=== PATIENT | female | born 1975 | race Caucasian/White ===

== ENCOUNTER 2023-05-30 00:30 | Day surgery (SDC) | payer OTHER, SELFPAY ==
[2023-05-19 15:26] VITALS: BMI 37.1
--- NOTE | 2023-05-19 15:31 | PC.NURSE ---
Report to the Outpatient Waiting Room, entrance under the green pavilion located off [facility], at time 1100 on date 05/30/23. Planned Procedure Time: 1300. Time changes happen often and if your time is changed the preop area will call you the afternoon before. - You and your visitor will be asked to self-screen and do not enter if you have any COVID symptoms. - A mask is optional within the hospital at this time. Patients may have clear liquids (water, carbonated beverages, clear teas, apple juice) until 3 hours prior to surgery with a maximum of 20 ounces. - No food from midnight until time of surgery Take the following medications with a SIP of water the morning of surgery: N/A DO NOT STOP ANY OF YOUR OTHER PRESCRIPTION MEDICATIONS PRIOR TO SURGERY ?EXCEPT THE FOLLOWING Medications to discontinue per physician: N/A Date to take last dose: N/A Please no make-up, nail mongolian, hairspray, perfume, deodorant, or body powder the day of surgery. No jewelry (including any body piercings) or valuables the day of surgery, leave them at home. Please take a shower or bath the night before, or the morning of, surgery with an antibacterial soap. Wear comfortable, loose fitting clothing. - Jewelry must be removed prior to entering the operating room. Rings and piercings that are not removed may be cut off. - The hospital will not accept responsibility for valuables. - Please leave all valuables, including medications, at home the day of surgery. If you are going home after surgery, a licensed local hazmat driver must drive you home. - NO public transportation without another adult if you receive anesthesia. - We recommend that an adult stay with you for 24 hours following discharge. - We also recommend that you do not drive, make important decision, drink alcoholic beverages, or take any drugs that were not prescribed by your health care provider for at least 24 hours after your discharge time. Follow any additional instructions given to you from your surgeon. If you or anyone in your household have experienced Covid symptoms in the past week, please notify your surgeon or the nurse liaison at the phone number below for possible testing. Telephone instructions given to PT - DEON CAMACHO and asked if any additional questions and then verbalized understanding. Patient advised to call surgeon office or pre surgery nurse liaison [phone] if any additional questions.
[2023-05-30 11:11] VITALS: BP 158/88; PULSE 73; RESP 18; TEMP 36.6; O2SAT 98
[2023-05-30 11:33] VITALS: BMI 36.2
[2023-05-30] MEDS: ACETAMINOPHEN 500 MG TABLET 1000 MG PO (11:34)
[2023-05-30] MEDS: LACTATED RINGERS 1,000 ML 30 ML IV CONT ×2 (11:40→13:43)
--- NOTE | 2023-05-30 12:14 | WPDHPUPDATE1 ---
History and Physical Update Update Date/Time: 05/30/23 12:14 History and Physical has been reviewed, including an updated exam of the patient. There are NO changes in the patient's condition. Risks, benefits, and alternatives have been discussed and questions answered. Patient agrees to proceed with hysteroscopy with D&C.
--- NOTE | 2023-05-30 12:14 | WPDANESEPPF ---
Anes - Initial Pre Proc Eval Procedure: Operation Date: 05/30/23 13:00 Proposed Procedures p Hysteroscopy Dilation and Curettage - Bernice Geiger MD Date/Time: 05/30/23 12:14 Surgeon: Bernice Geiger MD Pre Op Diagnosis: abnormal uterine bleeding Patient Data Age: 47 Gender: F Height: 1.57 m Weight: 89.9 kg Last Vital Signs Temp 36.6 C 05/30/23 11:11 Pulse 73 05/30/23 11:11 Resp 18 05/30/23 11:11 BP 158/88 H 05/30/23 11:11 Pulse Ox 98 05/30/23 11:11 O2 Del Method Room Air 05/30/23 11:11 Allergies Allergy/AdvReac Type Severity Reaction Status Date / Time No Known Allergies Allergy Verified 05/30/23 11:19 Home Medications Medication Instructions Recorded Confirmed Type medroxyprogesterone 10 mg tablet 10 mg PO DAILY #30 tabs 05/21/23 Rx (Provera) Patient hx anesthesia problems: none Family hx anesthesia problems: none Results Review: All pre-operative results and documents have been reviewed as part of the pre-operative evaluation. [facility] Past Medical History Medical History High blood pressure Surgical History Surgical History Delivery by section xs 2 History of tubal ligation Family History Family History Other Diabetes mellitus Hypertension Social History Social History Smoking packs per day: 1 Smoking cigarettes per day: 20.0 Years smoked: 25 Smoking pack-years: 25.00 Smoking status: Former smoker Tobacco type: cigarettes Smoking end date: 10/09/22 Alcohol intake: never Substance use: never Substance use type: does not use Lack of Transportation: No Lack of Food: Never True Current Housing: I Have Housing Concerned About Future Housing: No Difficulty Paying Gas/Electric Bills: No Difficulty Paying for Meds: No Currently Unemployed: No Education: High School Diploma/GED Difficulty w/ Childcare or Family Care: No Living arrangements: with family Occupation/Education: occupation Additional occupation/education comments: [employer] Gender identity (if verbalized by the patient): Female Sexual Orientation (if Verbalized by the Patient): Straight or Heterosexual Spiritual care concerns: No Anes - Eval Final PreProcedure Day of Procedure 05/30/23 12:14 Patient weight: obese Heart: regular rate and rhythm Lungs: clear to auscultation Airway: Mallampati scale class II Neurological: alert and oriented Last oral intake: >/= 8 hours ASA classification: II Emergent: no Anesthetic plan: proceed Anesthesia type and monitoring: general GIVS and standard monitoring Results Review: All pre-operative results and documents have been reviewed as part of the pre-operative evaluation. Informed Consent: The patient's anesthetic plan and its attendant risks and benefits were discussed with the patient/family/POA. Questions were solicited and answers provided to the satisfaction of the patient/family/POA.
[2023-05-30] MEDS: KETOROLAC 30 MG/ML VIAL (*BKC) IV PUSH (13:21)
--- NOTE | 2023-05-30 13:38 | W.PM.PROC2 ---
Procedure Note - Detailed Date of Procedure 05/30/23 Pre-op Diagnosis abnormal uterine bleeding Post-op Diagnosis Same Procedure Performed Hysteroscopy with D&C Surgeon Bernice Geiger MD Anesthesia MAC Findings Uterus sounded to 12cm; normal multiparous cervix. Bilateral tubal ostia visualized. Diffusely thickened endometrium throughout the uterine cavity. Good hemostasis at end of case. Description of Procedure Rosa Maria was taken to the operating room where she was placed under sedation without complications. She was then prepped and draped in the usual sterile fashion in the dorsal lithotomy position with her legs in low Momo stirrups. A time-out was performed and no perioperative antibiotics were indicated. A bivalve speculum was placed within the vagina where the cervix was easily identified. The anterior lip of the cervix was grasped with a single-tooth tenaculum. The uterus was sounded. The hysteroscope was advanced into the uterine cavity with the above findings noted. A curettage was then performed and a significant amount of endometrium was removed. The hysteroscope was once again advanced into the uterine cavity where tissue still remained. An additional curettage was performed until a good uterine cry was felt throughout the uterus. Good hemostasis was noted. All instruments were removed from the vagina. Sponge, lap, instrument, and needle counts were correct at the end of the procedure. Patient was awoken from anesthesia and taken to recovery with plans of same-day discharge home. Estimated Blood Loss 10 IV Fluids 1,000 (Fluid deficit: 50cc) Pathology Yes (Endometrial curettings) Complications No immediate complications Condition Stable Disposition Same day [facility] Billing Surgery - Charge Forward: Surgery Billing
[2023-05-30 13:43] VITALS: BP 118/83; PULSE 81; RESP 16
[2023-05-30 14:13] VITALS: BP 131/75; PULSE 59; RESP 16
[2023-05-30] MEDS: oxyCODONE HCL (*CRX) 5 MG TAB IR PO (14:16)
[2023-05-30 14:39] VITALS: BP 148/90; PULSE 59; RESP 16
== END 2023-05-30 14:46 | disposition home or self-care (01) ==
PROVIDERS: PCP Family Medicine; Visit Provider Obstetrics & Gynecology
PROC: 0U5B8ZZ Destruction of Endometrium, Via Natural or Artificial Opening Endoscopic (ICD-10-PCS; CPT 58563; principal; 2023-05-30 13:00)
DX: N85.01 Benign endometrial hyperplasia (principal); Z87.891 Personal history of nicotine dependence; E66.9 Obesity, unspecified; Z68.36 Body mass index [BMI] 36.0-36.9, adult
CPT/HCPCS: 58558; 88305; A9270; J1885; J2250; J2405; J2704; J3010; J7120